=== PATIENT | male | born 1985 | race Caucasian/White ===

== ENCOUNTER 2017-01-01 10:53 | Inpatient (IN) | payer OTHER ==
[~2017-01-01] VITALS: Ht 170.2 cm; Wt 72.6 kg
--- NOTE | ~2017-01-01 | HC ---
[facility] [place] [address] CONSULTATION Name: VICK ALVAREZ Room #: 410-P [facility] IN M.R.#: [id number] Admission: 01/02/17 Attend Phys: Mercedes Malik Discharge: 01/03/17 Date of : 89 Report #: [id number] THIS REPORT FOR: //name// CC: Rodger COX DATE OF SERVICE: 01/01/2017 REFERRING PROVIDER: Rodger Ledezma DO. REASON FOR CONSULTATION: Asthma exacerbation and pneumomediastinum. CHIEF COMPLAINT: Shortness of breath. HISTORY OF PRESENT ILLNESS: Our group was asked to see this gentleman in consultation while hospitalized at [facility], reasonable historian, 31-year-old male with a past history of asthma, longstanding; uses nebulized albuterol inhaler at least 3 times per week if not more frequently and had been a smoker up until about 1 month ago, presented to our Emergency Department after traveling here and visiting with family, became more short of breath and did not have his albuterol inhaler with him, some underlying cough and congestion also noted. Denies any fevers, chills or sweats. No ill contacts. No other significant environmental exposures. The patient notes better control of asthma only when he is on longacting inhaled therapy, but currently is just on albuterol p.r.n. ALLERGIES: None known. PAST MEDICAL HISTORY: Persistent asthma. PAST SURGICAL HISTORY: None. SOCIAL HISTORY: Ex-smoker, quitting about 1 month ago. No significant alcohol consumption. No significant environmental exposures, did have a dog which he recently got rid of. FAMILY HISTORY: Negative for significant pulmonary disease. REVIEW OF SYSTEMS: CONSTITUTIONAL: No fever, chills or sweats, change in weight or appetite. ENT: No upper respiratory congestion, rhinorrhea or dysphagia. CARDIOVASCULAR: No chest pains, palpitations, some chest tightness noted. GASTROINTESTINAL: No nausea, vomiting, diarrhea, constipation, or abdominal pain. GENITOURINARY: No dysuria, no frequency. INTEGUMENT: Denies any new rash. [facility] [address] [place] [address] CONSULTATION Name: VICK ALVAREZ Room #: 410-P [facility] IN M.R.#: [id number] Admission: 01/02/17 Attend Phys: Mercedes Malik Discharge: 01/03/17 Date of : 89 Report #: [id number] MUSCULOSKELETAL: No joint pains or swelling. Rest of 12 point review of systems is negative. PHYSICAL EXAMINATION: VITAL SIGNS: Afebrile, pulse 100-120, respiratory rate 18, blood pressure 151/91, oxygen saturation 94% on room air. GENERAL: This is a pleasant young male, in no distress. HEENT: Clear oropharynx, Mallampati 2 airway, no thrush. NECK: Supple, no lymphadenopathy. LUNGS: Diminished to diffuse inspiratory and expiratory wheezes heard throughout. CARDIOVASCULAR: Heart regular. No murmurs noted. ABDOMEN: Soft, nontender, no masses, no hepatosplenomegaly. EXTREMITIES: Without edema. LABORATORY DATA: CBC was normal. Chemistry profile normal. CT scan of the chest revealed significant pneumomediastinum, but no other significant lung disease appreciated. IMPRESSION: 1. Acute exacerbation of asthma. The patient has also suboptimally controlled without having a longacting controlling agent, would suggest patient be placed on longacting controlling medicine in addition to his p.r.n. albuterol. The patient would also need peak flows and have an asthma action plan. 2. Pneumomediastinum as a consequence of above. We will observe for now. No aggressive interventions. <ELECTRONICALLY SIGNED> By: Jim Raymond MD 01/08/17 1254 [id number] [id number] Jim Raymond MD /nt
--- NOTE | ~2017-01-01 | EKG ---
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
--- NOTE | ~2017-01-01 | 2DMMODE ---
[facility] [place] [address] 2 D/M-MODE ECHOCARDIOGRAM Name: ANTONIOJUANPAUL Olivier Room #: 410-P ADM IN M.R.#: [id number] Admission: 01/02/17 Attend Phys: Rodger Ledezma, Discharge: Date of : 89 Date of Service: 01/02/17 1604 Report #: [id number] THIS REPORT FOR: //name// APPROVED REPORT Study performed: 01/02/2017 13:17:51 EXAM: Comprehensive 2D, Doppler, and color-flow Echocardiogram Patient Location: Echo lab Room #: 410 Blood Pressure: 131/83 mmHg HR: 115 bpm Rhythm: Tachycardia Other Information Study Quality: Adequate Indications pneumopericardium, SOA, HX of asthma 2D Dimensions RVDd: 24.38 mm LVEF(%): 77.26 (>50%) IVSd: 8.61 (7-11mm) LVOT Diam: 19.79 (18-24mm) LVDd: 45.06 mm PWd: 9.93 (7-11mm) Ascending Ao: 25.21 (22-36mm) LVDs: 24.44 (25-40mm) Aortic Root: 26.28 mm Wills's LVEF: 77.26 % Volumes Left Atrial Volume (Systole) Single Plane 4CH: 40.71 mL Single Plane 2CH: 27.04 mL LA ESV Index: 19.00 mL/m2 Aortic Valve AoV Peak Ben.: 1.87 m/s AO Peak Gr.: 14.02 mmHg Pulmonary Valve PV Peak Ben.: 1.24 m/s PV Peak Gr.: 6.19 mmHg Tricuspid Valve [facility] [place] [address] [place] [address] 2 D/M-MODE ECHOCARDIOGRAM Name: VICK ALVAREZ Room #: [facility] ADM IN ..#: [id number] Admission: 01/02/17 Attend Phys: Rodger Ledezma, Discharge: Date of : 89 Date of Service: 01/02/17 1604 Report #: [id number] RAP Estimate: 5.00 mmHg Left Ventricle The left ventricle is normal size. There is normal LV segmental wall motion. There is normal left ventricular wall thickness. Left ventricular systolic function is hyperdynamic. LVEF is 65-70%. This study is not technically sufficient to allow evaluation of the LV diastolic function due to tachycardia. Right Ventricle The right ventricle is normal size. The right ventricular systolic function is normal. Atria The left atrium size is normal. The right atrium size is normal. Aortic Valve The aortic valve is normal in structure. No aortic regurgitation is present. There is no aortic valvular stenosis. Mitral Valve The mitral valve is normal in structure. There is no mitral valve regurgitation noted. No evidence of mitral valve stenosis. Tricuspid Valve The tricuspid valve is normal in structure. There is no tricuspid valve regurgitation noted. Pulmonic Valve The pulmonary valve is normal in structure. There is no pulmonic valvular regurgitation. Great Vessels The aortic root is normal in size. The ascending aorta is normal in size. IVC is normal in size and collapses >50% with inspiration. Pericardium There is no pericardial effusion. <Conclusion> Left ventricular systolic function is hyperdynamic. There is normal LV segmental wall motion. LVEF is 65-70%. The aortic valve is normal in structure. No aortic valvular stenosis [facility] [place] [address] 2 D/M-MODE ECHOCARDIOGRAM Name: VICK ALVAREZ Room #: 410-P [facility] IN M.R.#: [id number] Admission: 01/02/17 Attend Phys: Rodger Ledezma, Discharge: Date of : 89 Date of Service: 01/02/17 1604 Report #: [id number] or insufficiency. The mitral valve is normal in structure. No mitral valve regurgitation noted. Pulmonary artery pressure could not be reliably ascertained There is no pericardial effusion. <ELECTRONICALLY SIGNED> By: Juventino Knight MD, [facility] 01/02/17 1604 1604 1604 Juventino Knight MD, FACC /INF
[2017-01-01 10:56] VITALS: BP 148/95
[2017-01-01] MEDS ORDERED: PROAIR RESPICL90 MCG IH (11:03)
[2017-01-01 12:34] LABS: ABSOLUTE NEUTROPHILS 7.2 thou/uL (1.4-8.2); BASOPHILS 0.9 % (0.0-2.0); EOSINOPHILS 2.5 % (0.0-3.0); HEMOGLOBIN 16.6 gm/dL (14.0-18.0); LYMPHOCYTES 17.9 % (24.0-44.0); MANUAL DIFF NO; MCH 30.4 pg (26.0-34.0); MCHC 33.8 g/dL (28.0-37.0); MCV 89.8 fL (80.0-100.0); MONOCYTES 4.9 % (1.0-8.0); PLATELET COUNT 380 thou/uL (150-400); POLYS 73.8 % (36.0-66.0); RBC 5.45 mil/uL (4.50-6.00); RDW 13.3 % (10.5-14.5); WBC 9.7 thou/uL (4.0-11.0)
[2017-01-01 12:52] LABS: CALCIUM 8.9 mg/dL (8.5-10.1); POTASSIUM 3.6 mmol/L (3.5-5.1)
[2017-01-01 12:55] VITALS: BP 151/91
[2017-01-01 16:37] VITALS: BP 153/79
[2017-01-01 20:15] VITALS: BP 162/98
[2017-01-02 05:44] LABS: HEMATOCRIT 44.1 % (42.0-52.0); HEMOGLOBIN 15.2 gm/dL (14.0-18.0); MCH 30.7 pg (26.0-34.0); MCHC 34.4 g/dL (28.0-37.0); MCV 89.3 fL (80.0-100.0); PLATELET COUNT 397 thou/uL (150-400); RBC 4.94 mil/uL (4.50-6.00); RDW 13.8 % (10.5-14.5); WBC 17.6 thou/uL (4.0-11.0)
[2017-01-02 05:55] LABS: CALCIUM 9.4 mg/dL (8.5-10.1); CREATININE 1.1 mg/dL (0.7-1.3); POTASSIUM 4.4 mmol/L (3.5-5.1)
[2017-01-02 06:14] VITALS: BP 145/74
[2017-01-02 06:27] LABS: MANUAL DIFF YES
[2017-01-02 08:26] VITALS: BP 131/83
[2017-01-02 09:12] LABS: TOTAL CELL COUNT 100
[2017-01-02 09:13] LABS: ABSOLUTE NEUTROPHILS 16.2 thou/uL (1.4-8.2)
[2017-01-02 15:48] VITALS: BP 131/86
[2017-01-02 18:31] VITALS: BP 150/79
[2017-01-02 20:47] VITALS: BP 144/88
[2017-01-03] VITALS: BP 143/89
[2017-01-03 04:04] VITALS: BP 138/96
[2017-01-03 08:00] VITALS: BP 142/83
[2017-01-03] MEDS ORDERED: LEVAQUIN 500 M500 M2 PO (10:38)
[2017-01-03] MEDS ORDERED: PREDNISONE 20 M20 MG PO (10:38)
[2017-01-03 10:43] VITALS: BP 142/83
[2017-01-03 11:01] VITALS: BP 142/83
== END 2017-01-03 11:25 | disposition home or self-care (01) | DRG 200 ==
LOC: ER 10:53 → EROBS 12:38 → 4N 12:38
PROVIDERS: Emergency Medicine; Family Medicine
DX: J98.2 Interstitial emphysema (principal); J45.901 Unspecified asthma with (acute) exacerbation; I31.9 Disease of pericardium, unspecified; Z87.891 Personal history of nicotine dependence; Z79.899 Other long term (current) drug therapy
CPT/HCPCS: 10091